=== PATIENT | male | born 1955 | race Caucasian/White ===

== ENCOUNTER 2019-04-02 18:15 | Inpatient (IN) | payer BC ==
[~2019-04-02] VITALS: Ht 175.3 cm; Wt 80.0 kg
[2019-04-02] MEDS ORDERED: propofol 1000mg/100ml bottle 100 ML IV ONE (18:20)
[2019-04-02 18:35] LABS: ABG BASE EXCESS -3.6 mmol/L (-2.0-3.0); ABG HCO3 21.6 mmol/L (22.0-26.0); ABG OXYGEN SATURATION 86.2 % (95-98); ABG PCO2 (T) 39.3 mmHg (35.0-45.0); ABG PH (T) 7.358 (7.350-7.450); ABG PO2 (T) 58.4 mmHg (83-108); ALLEN'S TEST Positive; FCOHb 0.9 % (0.5-1.5); FMetHb 0.5 % (0.3-1.12); MINUTE VOLUME 11 L/min; PEEP 5 cm H2O; RESPIRATORY RATE 20 b/min; RESPIRATORY RATE (OBSERVED) 20 b/min; TIDAL VOLUME 450 mL; TOTAL HEMOGLOBIN 6.6 G/dl (14.0-17.9)
[2019-04-02 18:58] LABS: BASOPHILS % (AUTO) 0.1 % (0-1); EOSINOPHILS % (AUTO) 0 % (0-6); LYMPHOCYTES # (AUTO) 0.8 X10'3 (1.1-4.8); LYMPHOCYTES % (AUTO) 6.6 % (21-51); MEAN CORPUSCULAR HEMOGLOBIN 32.2 PG (27.0-31.0); MEAN CORPUSCULAR HGB CONC 34.8 g/dL (33.0-36.5); MEAN CORPUSCULAR VOLUME 92.8 FL (78-98); MEAN PLATELET VOLUME 7.6 FL (7.4-10.4); MONOCYTES # (AUTO) 0.6 X10'3 (0-0.9); MONOCYTES % (AUTO) 5.2 % (2-12); NEUTROPHILS # (AUTO) 10.6 X10'3 (1.8-7.7); NEUTROPHILS % (AUTO) 88.1 % (42-75); RED BLOOD COUNT 1.82 X10'6 (4.70-6.10); RED CELL DISTRIBUTION WIDTH 14.9 % (11.5-14.5)
[2019-04-02 19:04] LABS: HEMATOCRIT 16.9 % (42.0-52.0); HEMOGLOBIN 5.9 g/dl (14.0-17.9)
--- NOTE | 2019-04-02 19:06 | NUR ---
EXTUBATED PT WITH RT JAG, PT TOLERATED WELL. PT IS A&OX4. PT PALCED ON 2L NC SP02 96%. PT IS SITTING UP IN BED TOLERATING ICE CHIPS, NO COUGHING, NO SIGNS OF ANY DISTRESS.
[2019-04-02 19:13] LABS: ALANINE AMINOTRANSFERASE 159 U/L (12-78); ALBUMIN 2.1 G/DL (3.4-5.0); ALBUMIN/GLOBULIN RATIO 0.9 (1.1-1.5); ALKALINE PHOSPHATASE 49 IU/L (46-116); ANION GAP 9 (8-16); ASPARTATE AMINO TRANSFERASE 265 U/L (10-37); BILIRUBIN,TOTAL 0.7 MG/DL (0.1-1.0); BLOOD UREA NITROGEN 16 MG/DL (7-18); BUN/CREATININE RATIO 21.6 (5.4-32.0); CALCIUM 6.3 MG/DL (8.5-10.1); CHLORIDE 93 MMOL/L (99-107); CREATININE 0.74 MG/DL (0.60-1.10); GLUCOSE 89 MG/DL (70-104); MAGNESIUM 1.8 MG/DL (1.5-2.4); POTASSIUM 3.5 MMOL/L (3.5-5.1); SODIUM 125 MMOL/L (135-145); TOTAL CARBON DIOXIDE 23.5 MMOL/L (24-32); TOTAL PROTEIN 4.5 G/DL (6.4-8.2); eGFR > 90 ML/MIN
[2019-04-02 19:26] LABS: PLATELET COUNT 100 X10'3 (140-440)
[2019-04-02] MEDS ORDERED: piperacillin/tazo 3.375gm/50ml 50 ML IV ONE (20:30)
[2019-04-02] MEDS ORDERED: LORazepam 2 mg/ml vial IV ONE (20:30)
[2019-04-02] MEDS ORDERED: normal saline 1000ML IV soln IV ONE (20:30)
[2019-04-02 20:33] VITALS: BP 117/77
[2019-04-02 20:48] VITALS: BP 145/83
[2019-04-02 21:05] LABS: CLARITY,URINE CLOUDY (Clear); COLOR,URINE YELLOW (Yellow); GLUCOSE, URINE NEGATIVE (Neg); KETONES,URINE 15 mg/dl (Neg); LEUKOCYTE ESTERASE ,URINE NEGATIVE (Neg); NITRITES, URINE NEGATIVE (Neg); OCCULT BLOOD,URINE LARGE (Neg); PROTEIN,URINE TRACE mg/dl (Neg); UROBILINOGEN,URINE 0.2 E.U/dL (0.2-1.0)
[2019-04-02 21:06] LABS: OCCULT BLOOD STOOL POSITIVE (Neg)
[2019-04-02 21:06] LABS: UA COLLECTION TYPE FOLEY CATH
[2019-04-02] MEDS ORDERED: phenobarbital sod 130mg/ml inj. IV ONE (21:10)
[2019-04-02] MEDS ORDERED: phenobarbital inj 260 MG in normal saline 100ml IV soln 100 ML IV ONE (21:20)
[2019-04-02 21:22] LABS: SQUAMOUS EPITHELIAL CELL,UR FEW /LPF (FEW)
[2019-04-02 21:23] LABS: BACTERIA,URINE NONE SEEN /HPF (Neg)
[2019-04-02 21:25] LABS: AMORPHOUS URATES 4+; WBC,URINE 0-4 /HPF (0-4)
[2019-04-02 21:49] VITALS: BP 161/112
[2019-04-02 22:09] VITALS: BP 135/87
[2019-04-02] MEDS ORDERED: glucagon, human recombinant 1mg kit SUBCUT PRN (22:10)
[2019-04-02] MEDS ORDERED: LORazepam 2 mg/ml vial IV PRN (22:10)
[2019-04-02] MEDS ORDERED: thiamine inj. 100 MG in normal saline 100ml IV soln 100 ML IV ONE (22:10)
[2019-04-02] MEDS ORDERED: albuterol 2.5 MG/3 ML nebule NEB PRN (22:10)
[2019-04-02] MEDS ORDERED: haloperidol lactate 5mg/ml inj IM PRN (22:10)
[2019-04-02] MEDS ORDERED: magnesium 2GM in 50ml NS 50 ML IV PRN (22:10)
[2019-04-02] MEDS ORDERED: acetaminophen 650mg rectal suppository RC PRN (22:10)
[2019-04-02] MEDS ORDERED: acetaminophen 325mg tablet PO PRN ×2 (22:10)
[2019-04-02] MEDS ORDERED: dextrose 50%-water 50ml dispensing syringe IV PRN ×2 (22:10)
[2019-04-02] MEDS ORDERED: sodium phosphate inj. 30 MMOL in dextrose 5%-water 250 ML IV PRN (22:10)
[2019-04-02] MEDS ORDERED: magnesium 4gm in 100ml NS 100 ML IV PRN (22:10)
[2019-04-02] MEDS ORDERED: ondansetron/PF 4mg/2ml inj IV PRN (22:10)
[2019-04-02 22:14] LABS: NUCLEATED RED BLOOD CELLS 3 /100WBC (0-0); TOTAL CELLS COUNTED 100
[2019-04-02 22:15] LABS: PLATELET ESTIMATE DECREASED
--- NOTE | 2019-04-02 22:15 | NUR ---
WASTED 1 BOTTLE, 1 GRAM, OF PROPOFOL WITH NEY RN
[2019-04-02 22:17] LABS: ANISOCYTOSIS FEW; POLYCHROMASIA FEW
[2019-04-02 22:18] LABS: SMUDGE CELLS 1+
[2019-04-02 22:24] VITALS: BP 127/53
--- NOTE | 2019-04-02 22:25 | NUR ---
PT REPOSITIONED ON LEFT SIDE IN BED. PT RESTING COMFORTABLY. UPDATED ON PLAN OF CARE, WILL CONTINUE TO MONITOR
[2019-04-02] MEDS ORDERED: thiamine 100mg/ml 2ml inj. IV ONE (22:45)
[2019-04-02 22:55] LABS: URINE AMPHETAMINE SCREEN NEGATIVE (Neg); URINE BARBITUATE SCREEN NEGATIVE (Neg); URINE BENZODIAZEPINES SCREEN NEGATIVE (Neg); URINE CANNABINOID SCREEN NEGATIVE (Neg); URINE COCAINE SCREEN NEGATIVE (Neg); URINE METHADONE SCREEN NEGATIVE (Neg); URINE OPIATE SCREEN NEGATIVE (Neg); URINE PHENCYCLIDINE SCREEN NEGATIVE (Neg)
[2019-04-02] MEDS: normal saline 1000ml 1,000 ML IV SCH (22:56)
--- NOTE | 2019-04-02 23:20 | NUR ---
ATTEMPTED TO GIVE REPORT, RECEIVING RN WILL CALL BACK IN 10 MIN
[2019-04-02 23:24] VITALS: BP 127/53
[2019-04-03] VITALS (28 sets, daily range): BP systolic 93–161; BP diastolic 45–98
[2019-04-03] MEDS ORDERED: furosemide 40mg/4ml inj IV ONE (00:15)
--- NOTE | 2019-04-03 00:17 | NUR ---
2350: Patient here from ER into room CICU 2009. I have received report from Christiana BELLA and had the opportunity to ask questions and assume patient care. 0017: Patient's lung sounds coarse, complaining of shortness of breath, coughing up thick sputum. Febrile. Stephanie Loja notified, orders received.
[2019-04-03] MEDS: normal saline 1000ml 1,000 ML IV SCH ×3 (00:31→16:18)
[2019-04-03] MEDS: pantoprazole 40MG/NS 100ML BAG 100 ML IV SCH ×6 (01:30→20:31)
[2019-04-03 02:55] LABS: BASOPHILS % (AUTO) 0.1 % (0-1); EOSINOPHILS % (AUTO) 0 % (0-6); HEMATOCRIT 24.4 % (42.0-52.0); HEMOGLOBIN 8.5 g/dl (14.0-17.9); LYMPHOCYTES # (AUTO) 0.6 X10'3 (1.1-4.8); MEAN CORPUSCULAR HEMOGLOBIN 31.3 PG (27.0-31.0); MEAN CORPUSCULAR VOLUME 89.6 FL (78-98); MEAN PLATELET VOLUME 7.6 FL (7.4-10.4); MONOCYTES # (AUTO) 0.9 X10'3 (0-0.9); MONOCYTES % (AUTO) 6.2 % (2-12); NEUTROPHILS # (AUTO) 12.8 X10'3 (1.8-7.7); NEUTROPHILS % (AUTO) 89.7 % (42-75); PLATELET COUNT 90 X10'3 (140-440); RED BLOOD COUNT 2.72 X10'6 (4.70-6.10); RED CELL DISTRIBUTION WIDTH 15.3 % (11.5-14.5); WHITE BLOOD COUNT 14.3 X10'3 (4.5-11.0)
[2019-04-03 02:59] LABS: PARTIAL THROMBOPLASTIN TIME 27 SECONDS (22-32)
[2019-04-03 03:07] LABS: ALANINE AMINOTRANSFERASE 259 U/L (12-78); ALBUMIN 2.5 G/DL (3.4-5.0); ALBUMIN/GLOBULIN RATIO 0.9 (1.1-1.5); ALKALINE PHOSPHATASE 61 IU/L (46-116); AMYLASE 93 U/L (25-115); ANION GAP 6 (8-16); ASPARTATE AMINO TRANSFERASE 529 U/L (10-37); BILIRUBIN,TOTAL 1.4 MG/DL (0.1-1.0); BLOOD UREA NITROGEN 15 MG/DL (7-18); BUN/CREATININE RATIO 18.3 (5.4-32.0); CALCIUM 6.3 MG/DL (8.5-10.1); CHLORIDE 94 MMOL/L (99-107); CREATININE 0.82 MG/DL (0.60-1.10); GLUCOSE 94 MG/DL (70-104); LIPASE 160 U/L (73-393); MAGNESIUM 1.6 MG/DL (1.5-2.4); PHOSPHORUS 2.6 MG/DL (2.3-4.5); POTASSIUM 3.1 MMOL/L (3.5-5.1); SODIUM 128 MMOL/L (135-145); TOTAL CARBON DIOXIDE 28.3 MMOL/L (24-32); TOTAL PROTEIN 5.3 G/DL (6.4-8.2); eGFR > 90 ML/MIN
[2019-04-03 03:38] LABS: HEMOGLOBIN A1C 5.3 % (4.5-6.2)
[2019-04-03] MEDS: potassium Cl 20mEq/100mL bag 100 ML IV PRN ×7 (04:34→17:20)
[2019-04-03] MEDS: piperacillin/tazo 3.375gm/50ml 50 ML IV SCH ×3 (05:25→20:53)
--- NOTE | 2019-04-03 05:45 | NUR ---
Pt diuresed well p/Lasix. Denies shortness of breath, sats 99% on 2LNC
--- NOTE | 2019-04-03 06:31 | NUR ---
Problems reprioritized. Patient report given, questions answered & plan of care reviewed with Claritza BELLA.
[2019-04-03] MEDS: docusate sod 100mg capsule PO SCH ×2 (07:05→20:52)
[2019-04-03] MEDS: nicotine 14mg patch - 24hr TD SCH (07:05)
[2019-04-03 07:35] LABS: HEMOGLOBIN 7.5 g/dl (14.0-17.9); MEAN CORPUSCULAR HGB CONC 35.2 g/dL (33.0-36.5); MEAN CORPUSCULAR VOLUME 90.9 FL (78-98); MEAN PLATELET VOLUME 7.6 FL (7.4-10.4); PLATELET COUNT 88 X10'3 (140-440); RED BLOOD COUNT 2.33 X10'6 (4.70-6.10); RED CELL DISTRIBUTION WIDTH 15.4 % (11.5-14.5); WHITE BLOOD COUNT 13.4 X10'3 (4.5-11.0)
[2019-04-03 07:47] LABS: HEMATOCRIT 21.2 % (42.0-52.0)
[2019-04-03] MEDS: K, MAG and/or Phos replacement - Verify level? MC SCH (08:00)
[2019-04-03] MEDS: thiamine inj. 100 MG, folic acid inj. 2 MG in normal saline 100ml IV soln 100.0 ML IV SCH (08:17)
[2019-04-03] MEDS: MVI, adult No.4 with vit. K 10 ML in dextrose 5% water 500ml 500 ML IV SCH ×2 (08:18)
[2019-04-03] MEDS: ipratropium/albuterol 3ml nebule NEB SCH ×3 (09:06→21:11)
--- NOTE | 2019-04-03 09:51 | NUR ---
Pt off the unit for Upper GI scope at 1030.
[2019-04-03] MEDS ORDERED: LIDOcaine Viscous 15ml cup ONE (10:10)
[2019-04-03] MEDS ORDERED: MIDAZolam 5mg/5ml vial ONE (10:10)
[2019-04-03] MEDS ORDERED: fentaNYL/PF 50MCG/1 ML 2ML syringe ONE (10:10)
--- NOTE | 2019-04-03 11:46 | NUR ---
I have reviewed and agree with all medications administered and interventions performed by [facility] Student(fill in Student's name) Addendum: 04/03/19 at 1147 by Karol York RT STUDENT FELIPA NUNEZ Addendum: 04/03/19 at 1148 by Karol York RT Amended: Links added.
--- NOTE | 2019-04-03 12:23 | NUR ---
Pt returned to the unit at 1215
[2019-04-03 12:53] LABS: HEMOGLOBIN 7.4 g/dl (14.0-17.9); MEAN CORPUSCULAR HEMOGLOBIN 31.7 PG (27.0-31.0); MEAN CORPUSCULAR HGB CONC 34.7 g/dL (33.0-36.5); MEAN CORPUSCULAR VOLUME 91.3 FL (78-98); MEAN PLATELET VOLUME 7.3 FL (7.4-10.4); PLATELET COUNT 92 X10'3 (140-440); RED BLOOD COUNT 2.34 X10'6 (4.70-6.10); RED CELL DISTRIBUTION WIDTH 15.8 % (11.5-14.5); WHITE BLOOD COUNT 12.8 X10'3 (4.5-11.0)
[2019-04-03 12:55] LABS: HEMATOCRIT 21.4 % (42.0-52.0)
[2019-04-03] MEDS ORDERED: MULT-933 PO (16:15)
[2019-04-03 16:49] LABS: HEMOGLOBIN 7.7 g/dl (14.0-17.9); MEAN CORPUSCULAR HEMOGLOBIN 31.8 PG (27.0-31.0); MEAN CORPUSCULAR HGB CONC 34.9 g/dL (33.0-36.5); MEAN CORPUSCULAR VOLUME 91.1 FL (78-98); MEAN PLATELET VOLUME 7.5 FL (7.4-10.4); PLATELET COUNT 101 X10'3 (140-440); RED BLOOD COUNT 2.42 X10'6 (4.70-6.10); RED CELL DISTRIBUTION WIDTH 15.7 % (11.5-14.5); WHITE BLOOD COUNT 12.5 X10'3 (4.5-11.0)
[2019-04-03] MEDS ORDERED: FLU VACC QS2019-20 36MOS UP/PF 60 MCG/0.5 ML SYRINGE IMVAC ONE (20:10)
[2019-04-03] MEDS ORDERED: pneumococcal 23-VAL P-sac vacc 25 mcg/0.5ml vial IMVAC ONE (20:10)
[2019-04-03 20:41] LABS: HEMOGLOBIN 7.4 g/dl (14.0-17.9); MEAN CORPUSCULAR HEMOGLOBIN 31.6 PG (27.0-31.0); MEAN CORPUSCULAR HGB CONC 34.7 g/dL (33.0-36.5); MEAN CORPUSCULAR VOLUME 90.9 FL (78-98); MEAN PLATELET VOLUME 7.6 FL (7.4-10.4); PLATELET COUNT 106 X10'3 (140-440); RED BLOOD COUNT 2.33 X10'6 (4.70-6.10); WHITE BLOOD COUNT 12.4 X10'3 (4.5-11.0)
[2019-04-03 20:50] LABS: HEMATOCRIT 21.2 % (42.0-52.0)
[2019-04-03] MEDS: lactobacillus rhamnosus 10,000 MMU CELLS/CAPSULE PO SCH (20:53)
[2019-04-03] MEDS ORDERED: temazepam 15mg capsule PO ONE (22:35)
[2019-04-04] VITALS (22 sets, daily range): BP systolic 99–143; BP diastolic 52–102
[2019-04-04] MEDS: pantoprazole 40MG/NS 100ML BAG 100 ML IV SCH ×6 (01:51→23:46)
[2019-04-04 02:24] LABS: BASOPHILS % (AUTO) 0.2 % (0-1); EOSINOPHILS # (AUTO) 0.1 X10'3 (0-0.9); EOSINOPHILS % (AUTO) 0.7 % (0-6); HEMOGLOBIN 7.6 g/dl (14.0-17.9); LYMPHOCYTES % (AUTO) 8.9 % (21-51); MEAN CORPUSCULAR HEMOGLOBIN 32.1 PG (27.0-31.0); MEAN CORPUSCULAR HGB CONC 34.5 g/dL (33.0-36.5); MEAN CORPUSCULAR VOLUME 92.9 FL (78-98); MEAN PLATELET VOLUME 7.6 FL (7.4-10.4); MONOCYTES # (AUTO) 0.4 X10'3 (0-0.9); MONOCYTES % (AUTO) 3.5 % (2-12); NEUTROPHILS # (AUTO) 9.9 X10'3 (1.8-7.7); NEUTROPHILS % (AUTO) 86.7 % (42-75); PLATELET COUNT 110 X10'3 (140-440); RED BLOOD COUNT 2.36 X10'6 (4.70-6.10); RED CELL DISTRIBUTION WIDTH 15.9 % (11.5-14.5); WHITE BLOOD COUNT 11.4 X10'3 (4.5-11.0)
[2019-04-04 02:36] LABS: PARTIAL THROMBOPLASTIN TIME 27 SECONDS (22-32)
[2019-04-04 02:46] LABS: ALBUMIN 2.1 G/DL (3.4-5.0); ALBUMIN/GLOBULIN RATIO 0.9 (1.1-1.5); ALKALINE PHOSPHATASE 82 IU/L (46-116); AMYLASE 80 U/L (25-115); ANION GAP 3 (8-16); BILIRUBIN,TOTAL 1.5 MG/DL (0.1-1.0); BLOOD UREA NITROGEN 11 MG/DL (7-18); BUN/CREATININE RATIO 16.9 (5.4-32.0); CALCIUM 6.9 MG/DL (8.5-10.1); CHLORIDE 100 MMOL/L (99-107); CREATININE 0.65 MG/DL (0.60-1.10); GLUCOSE 86 MG/DL (70-104); LIPASE 228 U/L (73-393); MAGNESIUM 1.9 MG/DL (1.5-2.4); PHOSPHORUS 2.2 MG/DL (2.3-4.5); POTASSIUM 3.7 MMOL/L (3.5-5.1); SODIUM 131 MMOL/L (135-145); TOTAL CARBON DIOXIDE 27.8 MMOL/L (24-32); TOTAL PROTEIN 4.5 G/DL (6.4-8.2); eGFR > 90 ML/MIN
[2019-04-04 03:06] LABS: ALANINE AMINOTRANSFERASE 2197 U/L (12-78); ASPARTATE AMINO TRANSFERASE 4038 U/L (10-37)
[2019-04-04] MEDS: piperacillin/tazo 3.375gm/50ml 50 ML IV SCH ×3 (04:56→20:56)
[2019-04-04] MEDS: docusate sod 100mg capsule PO SCH ×2 (07:56→19:22)
[2019-04-04] MEDS: lactobacillus rhamnosus 10,000 MMU CELLS/CAPSULE PO SCH ×2 (07:56→19:22)
[2019-04-04] MEDS: nicotine 14mg patch - 24hr TD SCH (07:56)
[2019-04-04] MEDS: MVI, adult No.4 with vit. K 10 ML in dextrose 5% water 500ml 500 ML IV SCH ×2 (07:57)
[2019-04-04] MEDS: thiamine inj. 100 MG, folic acid inj. 2 MG in normal saline 100ml IV soln 100.0 ML IV SCH (07:57)
[2019-04-04] MEDS: K, MAG and/or Phos replacement - Verify level? MC SCH (08:00)
[2019-04-04 08:01] LABS: HEMATOCRIT 23.1 % (42.0-52.0); HEMOGLOBIN 8.1 g/dl (14.0-17.9); MEAN CORPUSCULAR HEMOGLOBIN 32.1 PG (27.0-31.0); MEAN CORPUSCULAR HGB CONC 35.1 g/dL (33.0-36.5); MEAN CORPUSCULAR VOLUME 91.4 FL (78-98); MEAN PLATELET VOLUME 7.6 FL (7.4-10.4); PLATELET COUNT 121 X10'3 (140-440); RED BLOOD COUNT 2.53 X10'6 (4.70-6.10); WHITE BLOOD COUNT 11.2 X10'3 (4.5-11.0)
[2019-04-04] MEDS: ipratropium/albuterol 3ml nebule NEB SCH ×3 (09:26→21:06)
[2019-04-04] MEDS: sodium phosphate inj. 15 MMOL in dextrose 5%-water 150 ML IV PRN (11:12)
[2019-04-04 15:12] LABS: HEMATOCRIT 24.7 % (42.0-52.0); HEMOGLOBIN 8.5 g/dl (14.0-17.9); MEAN CORPUSCULAR HEMOGLOBIN 31.7 PG (27.0-31.0); MEAN CORPUSCULAR HGB CONC 34.3 g/dL (33.0-36.5); MEAN CORPUSCULAR VOLUME 92.4 FL (78-98); MEAN PLATELET VOLUME 7.4 FL (7.4-10.4); PLATELET COUNT 144 X10'3 (140-440); RED BLOOD COUNT 2.67 X10'6 (4.70-6.10); WHITE BLOOD COUNT 11.8 X10'3 (4.5-11.0)
[2019-04-04 20:57] LABS: HEMATOCRIT 24.5 % (42.0-52.0); HEMOGLOBIN 8.4 g/dl (14.0-17.9); MEAN CORPUSCULAR HEMOGLOBIN 31.9 PG (27.0-31.0); MEAN CORPUSCULAR HGB CONC 34.4 g/dL (33.0-36.5); MEAN CORPUSCULAR VOLUME 92.9 FL (78-98); MEAN PLATELET VOLUME 7.4 FL (7.4-10.4); PLATELET COUNT 153 X10'3 (140-440); RED BLOOD COUNT 2.64 X10'6 (4.70-6.10); RED CELL DISTRIBUTION WIDTH 16.2 % (11.5-14.5); WHITE BLOOD COUNT 11.7 X10'3 (4.5-11.0)
[2019-04-04] MEDS ORDERED: LORazepam 2 mg/ml vial IV PRN (22:10)
[2019-04-04] MEDS: temazepam 15mg capsule PO PRN (23:07)
[2019-04-05] VITALS (14 sets, daily range): BP systolic 111–151; BP diastolic 69–92
[2019-04-05] MEDS: normal saline 1000ml 1,000 ML IV SCH (03:30)
[2019-04-05] MEDS: piperacillin/tazo 3.375gm/50ml 50 ML IV SCH (05:19)
[2019-04-05] MEDS: pantoprazole 40MG/NS 100ML BAG 100 ML IV SCH (05:19)
[2019-04-05 05:33] LABS: BASOPHILS % (AUTO) 0.4 % (0-1); EOSINOPHILS # (AUTO) 0.2 X10'3 (0-0.9); HEMATOCRIT 22.9 % (42.0-52.0); LYMPHOCYTES # (AUTO) 1.1 X10'3 (1.1-4.8); LYMPHOCYTES % (AUTO) 11.2 % (21-51); MEAN CORPUSCULAR HEMOGLOBIN 32.8 PG (27.0-31.0); MEAN CORPUSCULAR VOLUME 93.7 FL (78-98); MEAN PLATELET VOLUME 7.4 FL (7.4-10.4); MONOCYTES # (AUTO) 0.9 X10'3 (0-0.9); MONOCYTES % (AUTO) 9.1 % (2-12); NEUTROPHILS # (AUTO) 7.9 X10'3 (1.8-7.7); NEUTROPHILS % (AUTO) 77.3 % (42-75); PLATELET COUNT 160 X10'3 (140-440); RED BLOOD COUNT 2.45 X10'6 (4.70-6.10); RED CELL DISTRIBUTION WIDTH 16.4 % (11.5-14.5); WHITE BLOOD COUNT 10.2 X10'3 (4.5-11.0)
[2019-04-05 05:34] LABS: PARTIAL THROMBOPLASTIN TIME 25 SECONDS (22-32)
[2019-04-05 05:52] LABS: ALBUMIN 2.1 G/DL (3.4-5.0); ALBUMIN/GLOBULIN RATIO 0.8 (1.1-1.5); ALKALINE PHOSPHATASE 107 IU/L (46-116); AMYLASE 74 U/L (25-115); ANION GAP 5 (8-16); BILIRUBIN,TOTAL 1.4 MG/DL (0.1-1.0); BLOOD UREA NITROGEN 10 MG/DL (7-18); BUN/CREATININE RATIO 15.6 (5.4-32.0); CALCIUM 7.2 MG/DL (8.5-10.1); CHLORIDE 103 MMOL/L (99-107); CREATININE 0.64 MG/DL (0.60-1.10); GLUCOSE 96 MG/DL (70-104); MAGNESIUM 1.8 MG/DL (1.5-2.4); PHOSPHORUS 2.3 MG/DL (2.3-4.5); POTASSIUM 3.6 MMOL/L (3.5-5.1); SODIUM 137 MMOL/L (135-145); TOTAL CARBON DIOXIDE 29.2 MMOL/L (24-32); TOTAL PROTEIN 4.6 G/DL (6.4-8.2); eGFR > 90 ML/MIN
[2019-04-05 05:53] LABS: LIPASE 203 U/L (73-393)
[2019-04-05 05:54] LABS: ALANINE AMINOTRANSFERASE 1807 U/L (12-78); ASPARTATE AMINO TRANSFERASE 1156 U/L (10-37)
--- NOTE | 2019-04-05 06:30 | NUR ---
Patient in room CICU 2009. I have received report from Jg and had the opportunity to ask questions and assume patient care.
--- NOTE | 2019-04-05 06:30 | NUR ---
Patient in room CICU 2009. I have received report from JENA Gregorio and had the opportunity to ask questions and assume patient care.
[2019-04-05 07:13] LABS: ANISOCYTOSIS 1+; PLATELET ESTIMATE NORMAL; POLYCHROMASIA 1+
[2019-04-05] MEDS: sodium phosphate inj. 15 MMOL in dextrose 5%-water 150 ML IV PRN (07:20)
[2019-04-05] MEDS: thiamine 100mg tablet PO SCH (07:41)
[2019-04-05] MEDS: lactobacillus rhamnosus 10,000 MMU CELLS/CAPSULE PO SCH ×2 (07:41→20:30)
[2019-04-05] MEDS: multivitamins, therapeutics tablet PO SCH (07:41)
[2019-04-05] MEDS: nicotine 14mg patch - 24hr TD SCH ×2 (07:42→07:46)
[2019-04-05] MEDS ORDERED: folic acid 1mg tablet PO SCH (08:00)
[2019-04-05] MEDS: docusate sod 100mg capsule PO SCH ×2 (08:00→20:00)
[2019-04-05] MEDS: K, MAG and/or Phos replacement - Verify level? MC SCH (08:04)
[2019-04-05] MEDS: ipratropium/albuterol 3ml nebule NEB SCH ×3 (09:00→19:43)
--- NOTE | 2019-04-05 09:12 | NUR ---
0830 Patient compliant and pleasant, up to chair for breakfast. Ambulated 3 laps in unit. Steady on feet. HR to 130's with activity, returns to baseline quickly at rest. 0900 Dr Melendez rounds- Plan for d/c tomorrow, vp digital marketing social media and crm ordered, patients car in impound, homeless, recent binge etoh, limiteded resources. Switch to PO protinix 40mg BID. Dc IV fluids, transfer to floor.
[2019-04-05] MEDS ORDERED: potassium Cl 20 mEq SR tablet PO PRN ×2 (10:30)
[2019-04-05] MEDS ORDERED: potassium CL 10mEq/100ml bag 100 ML IV PRN (10:30)
[2019-04-05] MEDS: pantoprazole 40mg Tablet.DR PO SCH ×2 (10:36→20:30)
--- NOTE | 2019-04-05 11:12 | NUR ---
Problems reprioritized. Patient report given, questions answered & plan of care reviewed with Luana. Patient to be transferred to room 4008, no tele. All belongings as listed.
[2019-04-05 13:53] LABS: CLARITY,URINE CLEAR (Clear); COLOR,URINE YELLOW (Yellow); GLUCOSE, URINE NEGATIVE (Neg); KETONES,URINE NEGATIVE (Neg); LEUKOCYTE ESTERASE ,URINE NEGATIVE (Neg); NITRITES, URINE NEGATIVE (Neg); OCCULT BLOOD,URINE NEGATIVE (Neg); PROTEIN,URINE NEGATIVE (Neg); UA COLLECTION TYPE NON-SPECIFIED
--- NOTE | 2019-04-05 18:00 | NUR ---
RECEIVED PATIENT FROM CHEMA BELLA AND ASSUMED PATIENT CARE
--- NOTE | 2019-04-05 18:21 | NUR ---
GAVE REPORT TO BOBY BELLA
[2019-04-05] MEDS: temazepam 15mg capsule PO PRN (20:30)
[2019-04-06 06:00] VITALS: BP 124/64
[2019-04-06 06:10] LABS: BASOPHILS % (AUTO) 0.4 % (0-1); EOSINOPHILS # (AUTO) 0.3 X10'3 (0-0.9); EOSINOPHILS % (AUTO) 3.3 % (0-6); HEMATOCRIT 25.3 % (42.0-52.0); HEMOGLOBIN 8.6 g/dl (14.0-17.9); LYMPHOCYTES % (AUTO) 11.7 % (21-51); MEAN CORPUSCULAR HEMOGLOBIN 32.4 PG (27.0-31.0); MEAN CORPUSCULAR HGB CONC 34.2 g/dL (33.0-36.5); MEAN CORPUSCULAR VOLUME 94.6 FL (78-98); MONOCYTES # (AUTO) 1.5 X10'3 (0-0.9); MONOCYTES % (AUTO) 17.6 % (2-12); NEUTROPHILS # (AUTO) 5.7 X10'3 (1.8-7.7); PLATELET COUNT 220 X10'3 (140-440); RED BLOOD COUNT 2.67 X10'6 (4.70-6.10); RED CELL DISTRIBUTION WIDTH 17.5 % (11.5-14.5); WHITE BLOOD COUNT 8.4 X10'3 (4.5-11.0)
--- NOTE | 2019-04-06 06:17 | NUR ---
REPORT GIVEN TO CHEMA BELLA
[2019-04-06 06:25] LABS: PARTIAL THROMBOPLASTIN TIME 24 SECONDS (22-32)
--- NOTE | 2019-04-06 06:28 | NUR ---
Received report from JENA Holder. Addendum: 04/06/19 at 0655 by Cristal PRECIADO Entered on wrong patient.
--- NOTE | 2019-04-06 06:35 | NUR ---
RECEIVED REPORT FROM BOBY BELLA
[2019-04-06 06:40] LABS: ALBUMIN 2.3 G/DL (3.4-5.0); ALBUMIN/GLOBULIN RATIO 0.9 (1.1-1.5); AMYLASE 69 U/L (25-115); ANION GAP 7 (8-16); ASPARTATE AMINO TRANSFERASE 306 U/L (10-37); BILIRUBIN,TOTAL 1.1 MG/DL (0.1-1.0); BLOOD UREA NITROGEN 10 MG/DL (7-18); BUN/CREATININE RATIO 15.6 (5.4-32.0); CALCIUM 7.5 MG/DL (8.5-10.1); CHLORIDE 104 MMOL/L (99-107); CREATININE 0.64 MG/DL (0.60-1.10); GLUCOSE 89 MG/DL (70-104); LIPASE 196 U/L (73-393); MAGNESIUM 1.7 MG/DL (1.5-2.4); PHOSPHORUS 3.6 MG/DL (2.3-4.5); POTASSIUM 3.8 MMOL/L (3.5-5.1); SODIUM 137 MMOL/L (135-145); TOTAL CARBON DIOXIDE 25.8 MMOL/L (24-32); TOTAL PROTEIN 4.9 G/DL (6.4-8.2); eGFR > 90 ML/MIN
[2019-04-06 06:51] LABS: ALKALINE PHOSPHATASE 98 IU/L (46-116)
[2019-04-06 06:53] LABS: ALANINE AMINOTRANSFERASE 1168 U/L (12-78)
[2019-04-06 07:18] LABS: ANISOCYTOSIS 1+; LARGE PLATELETS FEW; PLATELET ESTIMATE NORMAL; TOTAL CELLS COUNTED 100
[2019-04-06 07:19] LABS: POLYCHROMASIA 1+
[2019-04-06] MEDS: K, MAG and/or Phos replacement - Verify level? MC SCH (08:00)
[2019-04-06] MEDS ORDERED: non-formulary drug (Multivitamin (One Daily Multivitamin) 1 TAB) PO SCH (08:00)
[2019-04-06] MEDS: thiamine 100mg tablet PO SCH (08:08)
[2019-04-06] MEDS: docusate sod 100mg capsule PO SCH ×2 (08:08→20:00)
[2019-04-06] MEDS: lactobacillus rhamnosus 10,000 MMU CELLS/CAPSULE PO SCH ×2 (08:08→20:06)
[2019-04-06] MEDS: multivitamins, therapeutics tablet PO SCH (08:08)
[2019-04-06] MEDS: pantoprazole 40mg Tablet.DR PO SCH ×2 (08:08→20:06)
[2019-04-06] MEDS: nicotine 14mg patch - 24hr TD SCH (08:13)
--- NOTE | 2019-04-06 08:32 | NUR ---
IV IS AT LEFT WRIST Addendum: 04/06/19 at 0834 by Mariela Bryan RN Amended: Links added.
[2019-04-06] MEDS: ipratropium/albuterol 3ml nebule NEB SCH ×3 (08:57→21:34)
[2019-04-06 10:00] VITALS: BP 127/82
--- NOTE | 2019-04-06 11:54 | NUR ---
Initial: Pt admit w/ GIB and etoh hx. Receiving thiamin/MVI; EDWARD d/w RN for folic acid per MD approval. PO 100% regular diet meeting needs. LBM 04/05. No nutrition concerns at this time. Will continue to monitor. Rec: 1. continue regular diet 2. thiamin/folic/MVI for etoh per MD 3. wt per rx Addendum: 04/06/19 at [address] Amended: Links added.
--- NOTE | 2019-04-06 17:31 | NUR ---
PAGER ID: [phone] MESSAGE: [id number] [phone]...RE PT IN ROOM 4008 ALFONSO MCKENZIE BP 174/105 PT STATES VERY ANXIOUS. CAN WE ORDER HIM ATIVAN?
[2019-04-06] MEDS: LORazepam 1 MG tablet PO PRN ×2 (17:42→21:32)
[2019-04-06 18:00] VITALS: BP 168/103
--- NOTE | 2019-04-06 18:11 | NUR ---
GAVE REPORT TO BOBY BELLA
--- NOTE | 2019-04-06 18:15 | NUR ---
RECEIVED REPORT FROM CHEMA BELLA AND ASSUMED PATIENT CARE.
[2019-04-06] MEDS: temazepam 15mg capsule PO PRN (20:06)
[2019-04-06 22:00] VITALS: BP 166/67
[2019-04-06] MEDS ORDERED: LORazepam 2 mg/ml vial IV PRN (22:10)
[2019-04-07] MEDS: LORazepam 1 MG tablet PO PRN (02:50)
[2019-04-07 05:49] LABS: BASOPHILS # (AUTO) 0.1 X10'3 (0-0.2); BASOPHILS % (AUTO) 0.6 % (0-1); EOSINOPHILS # (AUTO) 0.3 X10'3 (0-0.9); EOSINOPHILS % (AUTO) 3.5 % (0-6); HEMATOCRIT 28.6 % (42.0-52.0); HEMOGLOBIN 9.9 g/dl (14.0-17.9); LYMPHOCYTES # (AUTO) 1.2 X10'3 (1.1-4.8); LYMPHOCYTES % (AUTO) 14.3 % (21-51); MEAN CORPUSCULAR HEMOGLOBIN 32.6 PG (27.0-31.0); MEAN CORPUSCULAR HGB CONC 34.7 g/dL (33.0-36.5); MEAN CORPUSCULAR VOLUME 94.1 FL (78-98); MEAN PLATELET VOLUME 6.9 FL (7.4-10.4); MONOCYTES # (AUTO) 1.7 X10'3 (0-0.9); MONOCYTES % (AUTO) 20.4 % (2-12); NEUTROPHILS # (AUTO) 5.2 X10'3 (1.8-7.7); NEUTROPHILS % (AUTO) 61.2 % (42-75); PLATELET COUNT 309 X10'3 (140-440); RED BLOOD COUNT 3.04 X10'6 (4.70-6.10); RED CELL DISTRIBUTION WIDTH 17.3 % (11.5-14.5); WHITE BLOOD COUNT 8.4 X10'3 (4.5-11.0)
[2019-04-07 06:00] VITALS: BP 127/79
--- NOTE | 2019-04-07 06:20 | NUR ---
REPORT GIVEN TO ELIANE BELLA
[2019-04-07 06:25] LABS: ALANINE AMINOTRANSFERASE 945 U/L (12-78); ALBUMIN 2.9 G/DL (3.4-5.0); ALBUMIN/GLOBULIN RATIO 0.9 (1.1-1.5); ALKALINE PHOSPHATASE 115 IU/L (46-116); AMYLASE 79 U/L (25-115); ANION GAP 12 (8-16); ASPARTATE AMINO TRANSFERASE 163 U/L (10-37); BILIRUBIN,TOTAL 1.3 MG/DL (0.1-1.0); BLOOD UREA NITROGEN 12 MG/DL (7-18); BUN/CREATININE RATIO 15.8 (5.4-32.0); CALCIUM 8.4 MG/DL (8.5-10.1); CHLORIDE 103 MMOL/L (99-107); CREATININE 0.76 MG/DL (0.60-1.10); GLUCOSE 91 MG/DL (70-104); LIPASE 222 U/L (73-393); MAGNESIUM 1.8 MG/DL (1.5-2.4); PHOSPHORUS 4.3 MG/DL (2.3-4.5); POTASSIUM 3.9 MMOL/L (3.5-5.1); SODIUM 137 MMOL/L (135-145); TOTAL CARBON DIOXIDE 22.5 MMOL/L (24-32); TOTAL PROTEIN 6.1 G/DL (6.4-8.2); eGFR > 90 ML/MIN
--- NOTE | 2019-04-07 06:31 | NUR ---
RECEIVED REPORT FROM OBBY BELLA
[2019-04-07 06:48] LABS: ANISOCYTOSIS 1+; GIANT PLATELET FEW; LARGE PLATELETS FEW; PLATELET ESTIMATE NORMAL; TOTAL CELLS COUNTED 100
[2019-04-07 07:25] LABS: PARTIAL THROMBOPLASTIN TIME 24 SECONDS (22-32)
[2019-04-07] MEDS: docusate sod 100mg capsule PO SCH (07:30)
[2019-04-07] MEDS: pantoprazole 40mg Tablet.DR PO SCH (07:31)
[2019-04-07] MEDS: multivitamins, therapeutics tablet PO SCH (07:31)
[2019-04-07] MEDS: thiamine 100mg tablet PO SCH (07:31)
[2019-04-07] MEDS: lactobacillus rhamnosus 10,000 MMU CELLS/CAPSULE PO SCH (07:31)
[2019-04-07] MEDS: nicotine 14mg patch - 24hr TD SCH (07:34)
[2019-04-07] MEDS: K, MAG and/or Phos replacement - Verify level? MC SCH (07:35)
[2019-04-07] MEDS: ipratropium/albuterol 3ml nebule NEB SCH (08:31)
[2019-04-07] MEDS ORDERED: LACT1CAP26 PO (09:26)
[2019-04-07] MEDS ORDERED: PANT40TA4 PO (09:26)
[2019-04-07] MEDS ORDERED: thiamine tablet PO (09:26)
[2019-04-07] MEDS ORDERED: FOLI0.4T2 PO (09:26)
[2019-04-07] MEDS ORDERED: ALBU8.5H8 INH (09:26)
[2019-04-07] MEDS ORDERED: FERR325T28 PO (10:02)
[2019-04-07 10:45] VITALS: BP 151/88
--- NOTE | 2019-04-07 14:27 | NUR ---
I have reviewed and agree with all interventions, assessments performed and documented by Mariela BELLA.
== END 2019-04-07 12:51 | disposition home or self-care (01) | DRG 871 ==
LOC: ER 18:16 → ED HOLD 23:12 → CICU 2S 23:50 → ORTHO 4S 04-05 11:50
PROVIDERS: ADMIT Internal Medicine Critical Care Medicine; ATTEND Family Medicine
PROC: 30233N1 Transfusion of Nonautologous Red Blood Cells into Peripheral Vein, Percutaneous Approach (ICD-10-PCS; 2019-04-02)
PROC: 0DB68ZX Excision of Stomach, Via Natural or Artificial Opening Endoscopic, Diagnostic (ICD-10-PCS; principal; 2019-04-03)
PROC: 4A00X4Z Measurement of Central Nervous Electrical Activity, External Approach (ICD-10-PCS; 2019-04-03)
PROC: 3E02340 Introduction of Influenza Vaccine into Muscle, Percutaneous Approach (ICD-10-PCS; 2019-04-05)
PROC: 3E0234Z Introduction of Serum, Toxoid and Vaccine into Muscle, Percutaneous Approach (ICD-10-PCS; 2019-04-05)
DX: A41.9 Sepsis, unspecified organism (principal); J96.00 Acute respiratory failure, unspecified whether with hypoxia or hypercapnia; K29.01 Acute gastritis with bleeding; E87.1 Hypo-osmolality and hyponatremia; R56.9 Unspecified convulsions; F17.210 Nicotine dependence, cigarettes, uncomplicated; D69.6 Thrombocytopenia, unspecified; K26.9 Duodenal ulcer, unspecified as acute or chronic, without hemorrhage or perforation; F10.20 Alcohol dependence, uncomplicated; Y90.9 Presence of alcohol in blood, level not specified
CPT/HCPCS: 36415; 36430; 36600; 43239; 71045; 74176; 80053; 80305; 81001; 81003; 82140; 82150; 82272; 82803; 82948; 83036; 83605; 83690; 83735; 83880; 84100; 84132; 84145; 85018; 85025; 85027; 85610; 85730; 86885; 86900; 86901; 86920; 87040; 87070; 87081; 90732; 93005; 93306; 94002; 94640; 94760; 95816; 96365; 96368; 96375; 97116; 97161; 97530; 99152; 99291; 99292; A4620; C9113; G0378; J1940; J2060; J2250; J2543; J2560; J2704; J3010; J3411; J3480; J3490; J7040; J7060; P9016; Q2037